=== PATIENT | male | born 1980 | race Caucasian/White ===

== ENCOUNTER 2024-03-23 15:46 | Emergency (ER) | payer MEDICAID ==
[~2024-03-23] VITALS: Ht 157.5 cm; Wt 65.0 kg
[2024-03-23 15:50] VITALS: O2SAT 99
[2024-03-23 17:46] LABS: BASOPHILS % 0.3 % (0.0-2.0); CHLORIDE 104 mEq/L (98-107); EOSINOPHILS % 0.3 % (0.0-5.0); HEMATOCRIT. 42.2 % (42.0-52.0); LYMPHOCYTES % 8.9 % (20.0-50.0); MEAN CORPUSCULAR HEMOGLOBIN 31.1 pg (28.0-32.0); MEAN CORPUSCULAR HGB CONC 33.2 g/dL (31.0-37.0); MEAN CORPUSCULAR VOLUME 93.6 fL (80.0-94.0); MEAN PLATELET VOLUME 8.3 fl (7.4-10.4); MONOCYTES % 7.6 % (2.0-8.0); NEUTROPHILS % 82.9 % (40.0-76.0); PLATELET 209 x1000/uL (130-400); POTASSIUM 3.2 mEq/L (3.5-5.1); RED BLOOD CELL COUNT 4.51 mill/uL (4.7-6.1); RED CELL DISTRIBUTION WIDTH 13.5 % (11.6-14.6); SODIUM 137 mEq/L (136-145); WHITE BLOOD COUNT 11.8 x1000/uL (4.5-11.0)
[2024-03-23 17:47] LABS: CALCIUM 8.9 mg/dL (8.7-10.4); CARBON DIOXIDE 26 mEq/L (21-32)
[2024-03-23 17:52] LABS: CREATININE 0.9 mg/dL (0.6-1.3); GLUCOSE 141 mg/dL (70-105); UREA NITROGEN BLOOD 12 mg/dL (9-23)
[2024-03-23] MEDS: CEFAZOLIN 1000MG PREMIX 50 ML IV ONE (19:23)
[2024-03-23] MEDS: POTASSIUM CHLORIDE 20MEQ/PACKET PO ONE (19:23)
[2024-03-23 19:36] VITALS: BP 125/81; PULSE 80; RESP 18; TEMP 98.5
== END 2024-03-23 19:36 | disposition home or self-care (01) ==
LOC: ER 15:46 → CANBEDREQ 18:57 → ER 19:36
DX: S01.81XA Laceration without foreign body of other part of head, initial encounter (principal); E87.6 Hypokalemia; W18.39XA Other fall on same level, initial encounter; Y93.89 Activity, other specified; Y92.89 Other specified places as the place of occurrence of the external cause; Y99.8 Other external cause status
CPT/HCPCS: 80048; 85025; 36415; 70450; 70486; 72125; 12013; 96365; 99285; Z7610 ×2; J0690

== ENCOUNTER 2024-04-02 16:00 | Emergency (ER) | payer MEDICAID ==
[~2024-04-02] VITALS: Ht 165.1 cm; Wt 62.0 kg
[2024-04-02 16:15] VITALS: BP 110/74; PULSE 76; RESP 20; TEMP 98.3; O2SAT 96
== END 2024-04-02 18:49 | disposition left against medical advice (07) ==
LOC: ER 16:00
DX: S01.21XD Laceration without foreign body of nose, subsequent encounter (principal); Z53.21 Procedure and treatment not carried out due to patient leaving prior to being seen by health care provider; Z48.02 Encounter for removal of sutures; X58.XXXD Exposure to other specified factors, subsequent encounter

== ENCOUNTER 2024-04-04 13:09 | Emergency (ER) | payer MEDICAID ==
[~2024-04-04] VITALS: Ht 160 cm; Wt 65.0 kg
[2024-04-04 13:24] VITALS: O2SAT 100
[2024-04-04] MEDS ORDERED: BO1 TP (14:04)
[2024-04-04 14:10] VITALS: BP 133/71; PULSE 88; RESP 18; TEMP 98.2
== END 2024-04-04 14:10 | disposition home or self-care (01) ==
LOC: ER 13:09
DX: S01.81XD Laceration without foreign body of other part of head, subsequent encounter (principal); Z48.02 Encounter for removal of sutures; Z48.00 Encounter for change or removal of nonsurgical wound dressing; X58.XXXD Exposure to other specified factors, subsequent encounter
CPT/HCPCS: 99282; Z7610 ×2